=== PATIENT | male | born 1990 | race Caucasian/White ===

== ENCOUNTER 2020-07-25 17:58 | Emergency (ER) | payer MEDICAID, OTHER ==
[~2020-07-25] VITALS: Ht 172.7 cm; Wt 90.7 kg
--- NOTE | 2020-07-25 18:15 | NUR ---
Patient BIB 787 via gurney accompanied by [employer]. Patient ambulating with steady gait. per EMS patient was found arguing with mother and was seen to swing at mother but did not connect. per report, patient was noted talking to self. Speech is clear and able to make needs known / follow commands but needs redirection. Breathing even and unlabored. no cough and denies SOB. safety precautions implemented s/r up x2.
--- NOTE | 2020-07-25 18:26 | NUR ---
AT THIS TIME, PT IS A POOR HISTORIAN - CANNOT REMEMBER MEDICATIONS NOR ALLERGIES.
--- NOTE | 2020-07-25 18:30 | NUR ---
Patient on 5150 hold for Danger to Others
--- NOTE | 2020-07-25 18:33 | NUR ---
Daisy RYDERW notified with ETA of 190
[2020-07-25 18:37] LABS: BASOPHILS % (AUTO) 0.4 % (0.0-2.0); EOSINOPHILS # (AUTO) 0.2 K/uL (0.0-0.7); EOSINOPHILS % (AUTO) 2.3 % (0.0-7.0); HEMATOCRIT 46.1 % (36.7-47.1); HEMOGLOBIN 15.8 g/dL (12.5-16.3); LYMPHOCYTES # (AUTO) 1.9 K/uL (20.0-40.0); LYMPHOCYTES % (AUTO) 19.6 % (20.5-51.5); MEAN CORPUSCULAR HEMOGLOBIN 31.2 uug (23.8-33.4); MEAN CORPUSCULAR HGB CONC 34 g/dL (32.5-36.3); MEAN CORPUSCULAR VOLUME 91.2 fL (73.0-96.2); MONOCYTES # (AUTO) 0.8 K/uL (2.0-10.0); MONOCYTES % (AUTO) 7.7 % (0.0-11.0); NEUTROPHILS # (AUTO) 6.9 K/uL (1.8-8.9); PLATELET COUNT (AUTO) 284 K/uL (152-348); RED BLOOD CELL COUNT(AUTO) 5.05 MIL/uL (4.06-5.63); WHITE BLOOD COUNT (AUTO) 9.9 K/uL (3.6-10.2)
[2020-07-25 18:42] LABS: CARBON DIOXIDE 31 mmol/L (21-32); CHLORIDE 104 mmol/L (98-107); CREATININE 1.1 mg/dL (0.6-1.3); GLUCOSE 104 mg/dL (74-106); POTASSIUM 4.1 mmol/L (3.5-5.1); UREA NITROGEN, BLOOD 13 mg/dL (7-18)
[2020-07-25 18:48] LABS: *BLOOD, URINE NEGATIVE (NEGATIVE); *CLARITY,URINE CLEAR (CLEAR); *COLOR,URINE YELLOW (YELLOW); *KETONES,URINE NEGATIVE (NEGATIVE); *UROBILINOGEN,URINE 0.2 E.U./dl (NORMAL); LEUKOCYTE ESTERASE ,URINE NEGATIVE (NEGATIVE); NITRITE, URINE NEGATIVE (NEGATIVE); UGLUCOSE NEGATIVE (NEGATIVE)
[2020-07-25 18:51] LABS: ETHANOL < 3 MG/DL (0-0)
[2020-07-25 18:55] LABS: ACETAMINOPHEN < 2.0 ug/mL (10-30); ALANINE AMINOTRANSFERASE 29 U/L (16-63); ALKALINE PHOSPHATASE 56 U/L (50-136); ASPARTATE AMINOTRANSFERASE 21 U/L (15-37); BILIRUBIN,DIRECT 0.1 mg/dL (0.0-0.2); BILIRUBIN,TOTAL 0.4 mg/dL (0.2-1.0); TOTAL PROTEIN, SERUM 7.8 g/dL (6.4-8.2)
[2020-07-25 18:56] LABS: *BILIRUBIN,URIN 1+ (NEGATIVE)
[2020-07-25 18:57] LABS: *AMPHETAMINE, URINE NEGATIVE (NEGATIVE); *CANNABINOID, URINE POSITIVE (NEGATIVE); *COCCAINE, URINE NEGATIVE (NEGATIVE); *OPIATE, URINE NEGATIVE (NEGATIVE); *PHENCYCLIDINE SCREEN,URINE NEGATIVE (NEGATIVE)
--- NOTE | 2020-07-25 19:40 | NUR ---
Patient watching TV in bed and noted occasionally pacing into danielle but redirected by staff, no other behaviors noted
--- NOTE | 2020-07-25 19:50 | NUR ---
Security called to provide assistance due to patient's increased agitation
[2020-07-25] MEDS ORDERED: HALOPERIDOL LACTATE 5 MG/1 ML VIAL IM ONE (20:00)
[2020-07-25] MEDS ORDERED: LORAZEPAM 2 MG/1 ML VIAL IM ONE (20:00)
[2020-07-25] MEDS ORDERED: LORAZEPAM 2 MG/1 ML VIAL ONE (20:04)
[2020-07-25] MEDS ORDERED: HALOPERIDOL LACTATE 5 MG/1 ML VIAL ONE (20:04)
--- NOTE | 2020-07-25 21:28 | NUR ---
Continues on 1 to 1 observation, will conintue to monitor
[2020-07-25 23:08] LABS: BACTERIA,URINE NONE SEEN /HPF (NONE SEEN); RBC,URINE 0-3 /HPF (0-3); SQUAMOUS EPITHELIAL CELL,UR FEW /HPF (NONE SEEN); WBC,URINE 0-3 /HPF (0-3)
--- NOTE | 2020-07-26 00:30 | NUR ---
Patient noted resting in bed, no signs of acute distress noted
--- NOTE | 2020-07-26 04:30 | NUR ---
No changes noted
--- NOTE | 2020-07-26 07:00 | NUR ---
Patient continues to rest in bed, Mother stated to crisis steam plant operator Daisy that she will filler picker the patient at 11 am
--- NOTE | 2020-07-26 07:02 | NUR ---
Report given to Miguel A BAKER
[2020-07-26 09:07] VITALS: BP 134/77
--- NOTE | 2020-07-26 09:08 | NUR ---
PT WAS D/C'd TO HOME. D/C INSTRUCTIONS GIVEN TO THE PT AND TO HIS MOTHER . GAIT IS STABLE. NO S/S OF DISTRESS AT THE TIME OF DISCHARGE.
== END 2020-07-26 09:10 | disposition home or self-care (01) ==
LOC: ER 18:02
DX: F29 Unspecified psychosis not due to a substance or known physiological condition (principal); R00.0 Tachycardia, unspecified; Z91.14 Patient's other noncompliance with medication regimen; Z82.49 Family history of ischemic heart disease and other diseases of the circulatory system; F17.210 Nicotine dependence, cigarettes, uncomplicated; Z20.828 Contact with and (suspected) exposure to other viral communicable diseases
CPT/HCPCS: 36415; 71045; 80048; 80076; 80299; 80307 ×2; 80320; 81001; 85025; 87426; 93005; 96372 ×2; 99285; 99406; J1630; J2060; A4663; G0480